=== PATIENT | female | born 1995 | race Hispanic/Latino ===

== ENCOUNTER 2017-09-19 01:18 | Inpatient (IN) | payer MEDICAID, SELFPAY ==
[2017-09-19 01:52] LABS: Bilirubin Small (Negative); Blood, Urine Negative (Negative); Clarity CLOUDY (Clear); Glucose, Urine (Dipstick) Negative (Negative); Leukocyte Trace (Negative); Nitrite Negative (Negative); Pregnancy Test - Urine (BHCG) Negative (Negative); Pregu Control Background? CLEAR/WHITE (CLR/WHITE); Pregu Control Bar Appear? YES (CONTROL BAR); Protein, Urine (Dipstick) 30 mg/dL (Neg-Trace); Specific Gravity 1.036 (1.002-1.036); Specific Gravity, Urine 1.036 (1.002-1.036)
[2017-09-19 01:53] LABS: Bacteria/HPF Rare-Few HPF (None Seen); Hyaline Casts/LPF 4-6 HYALINE CAST LPF (0-3 Hyaline); Pathc Cast-AUWi Flag 1.08 (0-2.49)
[2017-09-19 02:30] LABS: #Eosinphils 0.1 thou/uL (0.0-0.7); #Lymphocytes 1.4 thou/uL (1.20-3.40); #Monocytes 0.4 thou/uL (0.11-0.59); #Neutrophils 6.3 thou/uL (1.40-6.50); %Basophils 0.4 % (0.0-1.0); %Eosinophils 0.7 % (0.0-10.0); %Lymphocytes 17.4 % (28.0-48.0); %Monocytes 4.5 % (0.0-4.0); Hemoglobin 11.2 g/dL (12.0-16.0); Mean Corpuscular HGB CONC 32.9 g/dL (32.0-36.0); Mean Corpuscular Hemoglobin 25.9 pg (25.0-35.0); Mean Corpuscular Volume 78.6 fl (77.0-87.0); Mean Platelet Volume 9.6 fL (7.4-10.4); Platelet Count 263 thou/uL (130-400); RBC Distribution Width 14.6 % (11.5-14.5); Red Blood Cell (RBC) Count 4.32 mill/uL (4.00-5.20); White Blood Cell (WBC) Count 8.1 thou/uL (4.8-10.8)
[2017-09-19 02:40] LABS: ALT (SGPT) 283 U/L (8-55); AST (SGOT) 367 U/L (5-34); Albumin 4.2 g/dL (3.5-5.0); Alkaline Phosphatase 202 U/L (40-150); Anion Gap 15 mmol/L (10-20); BUN (Urea Nitrogen) 11 mg/dL (7.0-18.7); Bilirubin, Total 1.5 mg/dL (0.2-1.2); Calc. Creatinine Clearance 0 mL/min (70-130); Calcium 9.1 mg/dL (7.8-10.44); Carbon Dioxide 22 mmol/L (22-29); Chloride 105 mmol/L (98-107); Estimated GFR-MDRD Greater than 90; Globulin 3.4 g/dL (2.4-3.5); Glucose 134 mg/dL (70-105); Lipase 17 U/L (8-78); Potassium 3.6 mmol/L (3.5-5.1); Protein, Total 7.6 g/dL (6.0-8.3); Sodium 138 mmol/L (136-145)
[2017-09-19] MEDS ORDERED: Ondansetron HCl/PF 4 MG/2 ML Vial ONE ×2 (03:07→14:11)
[2017-09-19] MEDS ORDERED: Piperacillin/Tazobactam 3.375 GM in Sodium Chloride 0.9% 100 ML IVPB SCH ×2 (04:15→12:00)
[2017-09-19 05:22] VITALS: BMI 26.6
[2017-09-19] MEDS ORDERED: Sodium Chloride 0.9% 1,000 ML IV SCH (05:50)
[2017-09-19] MEDS ORDERED: Ondansetron HCl/PF 4 MG/2 ML Vial IVP PRN ×2 (05:50→08:02)
[2017-09-19] MEDS ORDERED: Ondansetron ODT 4 MG TAB SL PRN (05:50)
--- NOTE | 2017-09-19 08:25 | ULT ---
PRELIMINARY REPORT/[facility]/EMERGENCY AFTER HOURS PROCEDURE: EXAM: US Abdomen Limited, Right Upper Quadrant CLINICAL HISTORY: 22 years old, female; Pain and signs and symptoms; Nausea and vomiting and other: Constipation x 2 da ys; Abdominal pain; Other: Eoigastric radiating to back TECHNIQUE: Real-time ultrasound of the right upper quadrant with image documentation. COMPARISON: No relevant prior studies available. FINDINGS: Liver: Mildly enlarged, 19.4 cm. Gallbladder: Multiple small gallstones. Normal wall thickness. No pericholecystic fluid identified. Positive Napier's sign reported. Common bile duct: Dilated common bile duct measuring 0.9 cm. Pancreas: Visualized portion unremarkable. Right kidney: Normal. IMPRESSION: Small gallstones, normal gallbladder wall thickness. Dilated common bile duct. Thank you for allowing us to participate in the care of your patient. Dictated and Authenticated by: Grover Chamberlain MD 09/19/2017 3:29 AM Central Time ([place] & [place]) FINAL REPORT GALLBLADDER ULTRASOUND: Date: 09/19/17 FINDINGS/IMPRESSION: I agree with the preliminary report given by Dr. Grover Chamberlain of [facility]. POS: [facility]
[2017-09-19 08:39] LABS: #Eosinphils 0.1 thou/uL (0.0-0.7); #Lymphocytes 1.9 thou/uL (1.20-3.40); #Monocytes 0.4 thou/uL (0.11-0.59); #Neutrophils 3.2 thou/uL (1.40-6.50); %Basophils 0.7 % (0.0-1.0); %Eosinophils 1.1 % (0.0-10.0); %Monocytes 6.4 % (0.0-4.0); %Neutrophils 57.9 % (31.0-61.0); Hemoglobin 10.4 g/dL (12.0-16.0); Mean Corpuscular HGB CONC 32.3 g/dL (32.0-36.0); Mean Corpuscular Hemoglobin 25.4 pg (25.0-35.0); Mean Corpuscular Volume 78.7 fl (77.0-87.0); Mean Platelet Volume 9.3 fL (7.4-10.4); Platelet Count 248 thou/uL (130-400); RBC Distribution Width 14.5 % (11.5-14.5); Red Blood Cell (RBC) Count 4.08 mill/uL (4.00-5.20); White Blood Cell (WBC) Count 5.5 thou/uL (4.8-10.8)
[2017-09-19 09:03] LABS: ALT (SGPT) 319 U/L (8-55); AST (SGOT) 341 U/L (5-34); Albumin 3.6 g/dL (3.5-5.0); Alkaline Phosphatase 185 U/L (40-150); Anion Gap 10 mmol/L (10-20); BUN (Urea Nitrogen) 8 mg/dL (7.0-18.7); Bilirubin, Total 1.4 mg/dL (0.2-1.2); Calc. Creatinine Clearance 132 mL/min (70-130); Calcium 8.5 mg/dL (7.8-10.44); Carbon Dioxide 27 mmol/L (22-29); Chloride 107 mmol/L (98-107); Estimated GFR-MDRD Greater than 90; Globulin 2.9 g/dL (2.4-3.5); Glucose 111 mg/dL (70-105); Lipase 10 U/L (8-78); Potassium 3.6 mmol/L (3.5-5.1); Protein, Total 6.5 g/dL (6.0-8.3); Sodium 140 mmol/L (136-145)
[2017-09-19] MEDS ORDERED: Iothalamate Meglumine 60% 50 ML VIAL FS ONE (09:19)
[2017-09-19] MEDS ORDERED: Midazolam HCl 2 mg/2 ml Vial ONE (09:58)
[2017-09-19] MEDS ORDERED: Fentanyl 100 MCG/2 ML VIAL ONE (09:58)
--- NOTE | 2017-09-19 11:21 | CON ---
DATE OF CONSULTATION: 09/19/2017 REFERRING PHYSICIAN: Dr. Juanjose Velazquez REASON FOR CONSULTATION: Abdominal pain, nausea, abnormal liver function tests. HISTORY OF PRESENT ILLNESS: Tanisha Julien is a very pleasant 22-year-old female wit h abdominal pain, nausea and vomiting since yesterday. The patient came to the ER because of abdomin al pain over the epigastric area and nausea. She had abdominal sonogram. The sonogram shows gallsto kathy and also dilation CBD to 9 mm. Her liver function tests are elevated. The bilirubin was 1.5 on admission, today 1.4. The transaminases, AST 367, ALT 283, alkaline phosphatase 202. Chem-7 is norm al. Her lipase is normal. The patient tells me that she was having some abdominal pain when she was a couple months ago. The pain was transient and was cramping in nature and is in the same kind of pain what she is experiencing today. The pain usually goes away by itself. Two weeks ago nash gilliland had abdominal pain with nausea and the pain lasted almost one week. Subsequently, the pain resolve d. She was doing well until last night when the pain came back again. The patient has no family his tory of gallstones. There is no other relevant history. ALLERGIES: None. SOCIAL HISTORY: The patient does not smoke or drink alcohol. MEDICAL ILLNESSES: None. SURGERIES: None. MENSTRUAL HISTORY: Regular cycles, LMP about 10 days ago. Normally bleeds for 3 days. She had a baby 2 months ago delivered by Dr. Sree Tavarez. FAMILY HISTORY: Unremarkable. REVIEW OF SYSTEMS: A 10-point system review was totally unremarkable. PHYSICAL EXAMINATION: GENERAL: The patient appears comfortable. She is awake, alert and communicative. VITAL SIGNS: Temperature 97.9 degrees Fahrenheit, pulse is 74, blood pressure is 112/74. HEENT: Conjunctivae clear. NECK: Supple. No adenitis or thyromegaly noted. CARDIOVASCULAR: First and second heart sounds normal. LUNGS: Clear to auscultation. ABDOMEN: Soft to palpate. Abdomen is mildly tender over the epigastric area. There is no rebound o r guarding. No organomegaly or masses. Bowel sounds are normal. EXTREMITIES: Reveal no edema. LABORATORY: Today sodium 140, potassium 3.6, chloride 107, bicarbonate 27, BUN is 8, creatinine 0.71 , glucose 111, calcium 8.5, bilirubin 1.4, AST 341. ALT 319, alkaline phosphatase 185, lipase normal at 10. Her CBC is normal without any leukocytosis. WBC 5900, hemoglobin 10.4, hematocrit 32.1, MCV 78.7, platelet count 248,000, polymorphs 57, lymphocytes 34, monocytes 6. The abdominal sonogram shows dilated CBD and also gallstones. CLINICAL IMPRESSION: Choledocholithiasis, gallstones. Plan endoscopic retrograde cholangiopancreato graphy with papillotomy. I did talk to Ms. Julien and explained about the procedure. She consents for ERCP followed by a laparoscopic cholecystectomy by Dr. Velazquez. The procedure and risks like pa ncreatitis, infection, bleeding, perforation explained to the patient. The patient fully understood the procedure and is agreeable. I will plan for ERCP later on today.
--- NOTE | 2017-09-19 12:28 | RAD ---
ERCP: INDICATION: Intraoperative imaging during ERCP procedure. Four fluoroscopic images are presented from ERCP exam. FINDINGS: The common duct is opacified. On one of the images, there is a suggestion of filling defects in the lower common duct, although this is not confirmed on the other images. Cystic duct is identified. T he intrahepatic radicals appear unremarkable. IMPRESSION: There is evidence of filling defect in the lower common duct seen on one of the images. POS: [facility]
[2017-09-19] MEDS ORDERED: Propofol 200 MG/20 ML VIAL ONE (14:11)
[2017-09-19] MEDS ORDERED: Glycopyrrolate 0.2 MG/ML 5 ML SYRINGE ONE (14:11)
[2017-09-19] MEDS ORDERED: Dexamethasone 20 MG/5 ML VIAL ONE (14:11)
[2017-09-19] MEDS ORDERED: Lidocaine 1% PF 5 ML VIAL ONE (14:11)
[2017-09-19] MEDS: Piperacillin/Tazobactam 3.375 GM in Sodium Chloride 0.9% 100 ML IVPB SCH ×2 (16:12→21:44)
--- NOTE | 2017-09-19 16:44 | OP ---
DATE OF PROCEDURE: 09/19/2017 OPERATIVE PROCEDURES: 1. Endoscopic retrograde cholangiopancreatography with papillotomy. 2. Balloon sweep of the bile duct. PREOPERATIVE DIAGNOSES: Abdominal pain, abnormal LFTs, possible common bile duct stone. POSTOPERATIVE DIAGNOSES: 1. Normal caliber bile duct. 2. Small filling defect in distal bile duct, status post sphincterotomy. PROCEDURE IN DETAIL: The patient was intubated and was given sedation by Anesthesia Department. The patient was transferred from the stretcher to the fluoroscopy table. The patient was placed on her stomach. A bite block was placed. A [employer] video duodenoscope under direct vision was passed down t he oropharynx past the GE junction and advanced into the descending duodenum. The papilla was again identified. The papilla was cannulated with a guidewire into the bile duct selectively. Upon inject ion of contrast, there was a questionable filling defects in the distal bile duct. The bile ducts we re nondilated. A papillotomy was made at the 12 o'clock position. A 1.25-1.5 cm sized cut was made. After the papillotomy, the papillotome was exchanged to a biliary balloon size 9-12 mm. The balloo n was advanced into the bile duct and the duct was swept x4. In initial sweeping, I could see a smal l stone coming out. Subsequently, the balloon was swept three more times with balloon was easily bro ught out from 9-12 mm. Occlusion cholangiogram showed no filling defects. Also, the bile duct empti ed very promptly. The stomach was decompressed and the scope removed. RECOMMENDATIONS: 1. Repeat LFTs tomorrow. 2. Clear liquid diet today and possibly a laparoscopic cholecystectomy by Dr. Velazquez tomorrow.
[2017-09-19] MEDS: D5 1/2 NS w/20 mEq KCL 1,000 ML IV SCH ×2 (17:32→17:37)
--- NOTE | 2017-09-19 19:18 | HP ---
CHIEF COMPLAINT: Abdominal pain. HISTORY OF PRESENT ILLNESS: Ms. Julien is a 22-year-old woman with intermittent postprandial abdominal pain for the past 3 months or so. This became much worse the day before her admission and was not relenting so she came to the emergency room. She was found to have gallstones but also was noted to have elevated bilirubin, AST, ALT, and a dilated common bile duct to 9 mm. She was placed on IV antibiotics and admitted to the hospital. This morning Gastroenterology saw her and performed an ERCP with sphincterotomy and stone extraction. She is feeling somewhat better since her ERCP, but still has pain in her epigastric area. She denies any fevers or chills. She had nausea, but no vomiting, no changes in her bowel habits. No jaundice or icterus. She is otherwise healthy. PAST MEDICAL HISTORY: None. PAST SURGICAL HISTORY: None except for ERCP today. FAMILY HISTORY: None. MEDICATIONS: No medications. ALLERGIES: No allergies. REVIEW OF SYSTEMS: Ten-system review of systems is negative except for HPI. LABORATORY DATA: White count was normal. Hematocrit 32, platelets 248. Bilirubin was 1.5, AST and ALT in the 300s, alkaline phosphatase elevated at 200. Urine test negative. IMAGING: As per HPI. She was also noted to have a adnexal mass which was felt to be an involuting cyst of her ovary. PHYSICAL EXAMINATION: VITAL SIGNS: The patient has been afebrile since her admission. Heart rate is in the 70s, respirations 14, 98% saturated on room air, blood pressure 112/74. GENERAL: Reveals a healthy appearing young woman, in no acute distress. She is not flushed or toxic in appearance. She is not jaundiced or icteric. HEENT: Normal. NECK: Supple without lymphadenopathy or thyroid nodules. HEART: Regular in its rate and rhythm without murmurs, rubs or gallops. LUNGS: Clear to auscultation bilaterally. ABDOMEN: Soft and nondistended. She does not have any palpable masses or hernias. She is tender to palpation in the epigastrium greater than right upper quadrant, greater than left upper quadrant. She does not exhibit rigidity , rebound or guarding. Bowel sounds are present. EXTREMITIES: Warm and well perfused. NEUROLOGIC: No focal deficits. PSYCHIATRIC: Alert, oriented, and appropriate. ASSESSMENT: Cholelithiasis, choledocholithiasis, status post ERCP, sphincterotomy, and stone extraction. I have recommended laparoscopic cholecystectomy to prevent future episodes. The patient is in agreement with this plan. She is scheduled for a laparoscopic cholecystectomy tomorrow. I am going to be traveling out of town, but Dr. Munroe is available to perform her surgery. The procedure and its inherent risks were discussed in detail with the patient. These include, but are not limited to bleeding, infection, risks of anesthesia, damage to nearby structures including bowel, liver and bile duct, need for other procedures, and need for open surgery. She understands and accepts these risks and wishes to proceed. She will be maintained on IV antibiotics perioperatively. She has been made n.p.o. after midnight. All of her questions were answered. ROGERIO
[2017-09-20] MEDS: D5 1/2 NS w/20 mEq KCL 1,000 ML IV SCH ×3 (03:12→17:26)
[2017-09-20] MEDS: Piperacillin/Tazobactam 3.375 GM in Sodium Chloride 0.9% 100 ML IVPB SCH ×4 (03:34→21:41)
[2017-09-20 04:46] LABS: #Lymphocytes 1.9 thou/uL (1.20-3.40); #Monocytes 0.3 thou/uL (0.11-0.59); #Neutrophils 5.3 thou/uL (1.40-6.50); %Basophils 0.4 % (0.0-1.0); %Eosinophils 0.1 % (0.0-10.0); %Lymphocytes 24.5 % (28.0-48.0); %Monocytes 4.5 % (0.0-4.0); %Neutrophils 70.5 % (31.0-61.0); Hemoglobin 9.7 g/dL (12.0-16.0); Mean Corpuscular HGB CONC 32.4 g/dL (32.0-36.0); Mean Corpuscular Hemoglobin 25.6 pg (25.0-35.0); Mean Platelet Volume 9.4 fL (7.4-10.4); Platelet Count 237 thou/uL (130-400); RBC Distribution Width 14.5 % (11.5-14.5); Red Blood Cell (RBC) Count 3.77 mill/uL (4.00-5.20); White Blood Cell (WBC) Count 7.5 thou/uL (4.8-10.8)
[2017-09-20 04:51] LABS: ALT (SGPT) 217 U/L (8-55); AST (SGOT) 110 U/L (5-34); Albumin 3.4 g/dL (3.5-5.0); Alkaline Phosphatase 155 U/L (40-150); Anion Gap 10 mmol/L (10-20); BUN (Urea Nitrogen) 6 mg/dL (7.0-18.7); Bilirubin, Direct 0.3 mg/dL (0.1-0.3); Bilirubin, Total 0.6 mg/dL (0.2-1.2); Calc. Creatinine Clearance 140 mL/min (70-130); Calcium 8.3 mg/dL (7.8-10.44); Carbon Dioxide 25 mmol/L (22-29); Chloride 108 mmol/L (98-107); Estimated GFR-MDRD Greater than 90; Globulin 2.7 g/dL (2.4-3.5); Glucose 150 mg/dL (70-105); Lipase 553 U/L (8-78); Potassium 3.6 mmol/L (3.5-5.1); Protein, Total 6.1 g/dL (6.0-8.3); Sodium 139 mmol/L (136-145)
[2017-09-20] MEDS ORDERED: FLU VACC QS2017-18 36 mo. & older 0.5 ML SYRINGE IM ONE (09:00)
[2017-09-20] MEDS ORDERED: Bupivacaine 0.25% HCL 30 ML VIAL ONE (09:55)
[2017-09-20] MEDS ORDERED: Lidocaine 1% w/Epinephrine 1:200K 30 ML VIAL ONE (09:55)
[2017-09-20] MEDS ORDERED: Fentanyl 100 MCG/2 ML VIAL ONE (10:03)
[2017-09-20] MEDS ORDERED: Promethazine HCl 25 MG SUPP ONE (10:03)
[2017-09-20] MEDS ORDERED: HYDROmorphone 0.5 MG/0.5 ML SYRINGE ONE (10:03)
[2017-09-20] MEDS ORDERED: Promethazine HCl 25 MG/ML VIAL ONE (10:04)
[2017-09-20] MEDS ORDERED: Promethazine HCl 25 MG/ML VIAL IM PRN ×2 (10:50→11:02)
[2017-09-20] MEDS ORDERED: HYDROmorphone 2 MG/ML VIAL SLOW IVP PRN (10:50)
[2017-09-20] MEDS ORDERED: Promethazine HCl 25 MG/ML VIAL SLOW IVP PRN (10:50)
[2017-09-20] MEDS ORDERED: Ondansetron HCl/PF 4 MG/2 ML Vial IVP PRN ×2 (10:50→11:02)
[2017-09-20] MEDS ORDERED: Dextrose 50% Abboject 50 ML SYRINGE SLOW IVP PRN (11:02)
[2017-09-20] MEDS ORDERED: Dextrose 5% in Water 1,000 ML IV PRN (11:02)
[2017-09-20] MEDS ORDERED: HYDROcodone/Acetaminophen 10/325 mg Tablet PO PRN (11:02)
[2017-09-20] MEDS ORDERED: Mag-Al 1200 mg/1200 mg/30 ML UDCUP PO PRN (11:02)
[2017-09-20] MEDS ORDERED: hydrALAZINE 20 MG/ML VIAL SLOW IVP PRN (11:02)
[2017-09-20] MEDS ORDERED: Calcium Carbonate 500 MG ChewTAB PO PRN (11:02)
[2017-09-20] MEDS: Ketorolac Tromethamine 30 MG/ML VIAL IVP SCH ×2 (12:46→17:32)
[2017-09-20] MEDS ORDERED: Dexamethasone 20 MG/5 ML VIAL ONE (14:33)
[2017-09-20] MEDS ORDERED: Ondansetron HCl/PF 4 MG/2 ML Vial ONE (14:33)
[2017-09-20] MEDS ORDERED: Ketorolac Tromethamine 30 MG/ML VIAL ONE (14:33)
[2017-09-20] MEDS ORDERED: Glycopyrrolate 0.2 MG/ML 5 ML SYRINGE ONE (14:33)
[2017-09-20] MEDS ORDERED: Propofol 200 MG/20 ML VIAL ONE (14:33)
[2017-09-20] MEDS ORDERED: Lidocaine 1% PF 5 ML VIAL ONE (14:33)
--- NOTE | 2017-09-20 14:59 | OP ---
PREOPERATIVE DIAGNOSIS: Symptomatic cholelithiasis. SURGEON: Salazar Munroe M.D. PROCEDURE PERFORMED: Laparoscopic cholecystectomy. INDICATIONS: A 22-year-old female who presented with severe right upper quadrant pain and elevated l iver function tests, underwent ERCP with stone extraction yesterday. FINDINGS: Contracted gallbladder. DESCRIPTION OF PROCEDURE: After informed consent was obtained, the patient was taken to the operatin g room and given general endotracheal anesthesia. She was placed in the supine position. Abdomen wa s prepped and draped in the usual fashion. Local anesthesia infiltrated subcutaneously and deep. A subumbilical incision was performed. Subcu divided sharply. Fascia grasped and two stay sutures of 0 Vicryl placed to either side of midline. Midline incised. Digital palpation revealed no local adh esions. A blunt 10-12 mm trocar inserted. Pneumoperitoneum was created to a pressure of 15 mmHg. A 0 degree laparoscope inserted. Under direct vision, three 5 mm ports placed subcostally. The gallb ladder grasped and advanced superiorly. The peritoneum was lysed distally to expose the duct, artery and critical view. The duct was triply ligated with Hemoclips and divided. The artery triply ligat ed with Hemoclips and divided. The gallbladder was removed from its fossa utilizing electrocautery, removed from the abdomen through the umbilical port. Hemostasis was assured. Trocars and retractors removed. The fascia closed with interrupted 0 Vicryl suture. The skin closed with interrupted 4-0 Rapide. Dermabond applied. The patient tolerated the procedure well and transferred to recovery in good condition. Sponge and needle count verified correct x2.
[2017-09-20] MEDS: HYDROcodone/Acetaminophen 10/325 mg Tablet PO PRN (21:41)
[2017-09-20] MEDS: Famotidine 20 MG TAB PO SCH (21:42)
[2017-09-20] MEDS: Famotidine 40 MG/4 ML VIAL IV SCH (23:41)
[2017-09-21] MEDS: Ketorolac Tromethamine 30 MG/ML VIAL IVP SCH ×3 (00:30→11:43)
[2017-09-21] MEDS: D5 1/2 NS w/20 mEq KCL 1,000 ML IV SCH (03:28)
[2017-09-21] MEDS: HYDROcodone/Acetaminophen 10/325 mg Tablet PO PRN (03:37)
[2017-09-21] MEDS: Piperacillin/Tazobactam 3.375 GM in Sodium Chloride 0.9% 100 ML IVPB SCH ×2 (03:38→09:22)
[2017-09-21 04:49] LABS: #Eosinphils 0.1 thou/uL (0.0-0.7); #Lymphocytes 2.1 thou/uL (1.20-3.40); #Monocytes 0.4 thou/uL (0.11-0.59); %Eosinophils 1.5 % (0.0-10.0); %Lymphocytes 27.2 % (28.0-48.0); %Monocytes 5.4 % (0.0-4.0); %Neutrophils 65.9 % (31.0-61.0); Hemoglobin 9.6 g/dL (12.0-16.0); Mean Corpuscular HGB CONC 32.8 g/dL (32.0-36.0); Mean Corpuscular Hemoglobin 26.2 pg (25.0-35.0); Mean Corpuscular Volume 79.9 fl (77.0-87.0); Mean Platelet Volume 9.5 fL (7.4-10.4); Platelet Count 224 thou/uL (130-400); RBC Distribution Width 14.7 % (11.5-14.5); Red Blood Cell (RBC) Count 3.68 mill/uL (4.00-5.20); White Blood Cell (WBC) Count 7.6 thou/uL (4.8-10.8)
[2017-09-21 05:01] LABS: ALT (SGPT) 156 U/L (8-55); AST (SGOT) 53 U/L (5-34); Albumin 3.2 g/dL (3.5-5.0); Alkaline Phosphatase 135 U/L (40-150); Anion Gap 11 mmol/L (10-20); BUN (Urea Nitrogen) 7 mg/dL (7.0-18.7); Bilirubin, Total 0.4 mg/dL (0.2-1.2); Calc. Creatinine Clearance 125 mL/min (70-130); Calcium 8.2 mg/dL (7.8-10.44); Carbon Dioxide 25 mmol/L (22-29); Chloride 108 mmol/L (98-107); Estimated GFR-MDRD Greater than 90; Globulin 2.7 g/dL (2.4-3.5); Glucose 139 mg/dL (70-105); Potassium 3.7 mmol/L (3.5-5.1); Protein, Total 5.9 g/dL (6.0-8.3); Sodium 140 mmol/L (136-145)
[2017-09-21] MEDS ORDERED: Enoxaparin Sodium 40 MG/0.4 ML SYRINGE SC SCH (09:00)
[2017-09-21] MEDS: Famotidine 20 MG TAB PO SCH (09:19)
[2017-09-21] MEDS: Famotidine 40 MG/4 ML VIAL IV SCH (09:19)
[2017-09-21 11:31] VITALS: BP 119/80; TEMP 98.1
--- NOTE | 2017-09-21 22:52 | DIS ---
DISCHARGE DIAGNOSIS: Acute cholecystitis with choledocholithiasis. PROCEDURES DURING ADMISSION: ERCP with stone extraction, laparoscopic cholecystectomy. HOSPITAL COURSE: The patient was admitted. She had elevated liver function test. GI was consulted. They performed an ERCP with stone extraction. The following day, she underwent a laparoscopic chol ecystectomy. She is doing well. She is tolerating diet. Pain is controlled on p.o. medications. S he is discharged home on hydrocodone and Zofran. She will follow up with me in 2 weeks.
== END 2017-09-21 15:09 | disposition home or self-care (01) | DRG 419 ==
LOC: ERS 01:18 → SJJU 05:07
PROVIDERS: ADMIT Surgery; ATTEND Surgery
PROC: 0FC98ZZ Extirpation of Matter from Common Bile Duct, Via Natural or Artificial Opening Endoscopic (ICD-10-PCS; 2017-09-19)
PROC: BF100ZZ Fluoroscopy of Bile Ducts using High Osmolar Contrast (ICD-10-PCS; 2017-09-19)
PROC: 0FT44ZZ Resection of Gallbladder, Percutaneous Endoscopic Approach (ICD-10-PCS; principal; 2017-09-20)
DX: K80.62 Calculus of gallbladder and bile duct with acute cholecystitis without obstruction (principal)
CPT/HCPCS: 36415; 74330; 76705; 80053; 80076; 81003; 81015; 81025; 83690; 85025; 87086; 88304; 96365; 96375; J1100; J1170; J1650; J1885; J2001; J2250; J2270; J2405; J2543; J2550; J2704; J3010; J7050; Q9961; S0020

== ENCOUNTER 2018-07-07 22:01 | Emergency (ER) | payer OTHER, SELFPAY ==
[2018-07-07 23:05] LABS: #Lymphocytes 2.7 thou/uL (1.20-3.40); #Monocytes 0.5 thou/uL (0.11-0.59); %Basophils 0.4 % (0.0-1.0); %Eosinophils 0.4 % (0.0-10.0); %Lymphocytes 25.9 % (21.0-51.0); %Monocytes 4.9 % (0.0-10.0); %Neutrophils 68.5 % (42.0-75.0); Hemoglobin 13.2 g/dL (12.0-16.0); Mean Corpuscular Hemoglobin 27.3 pg (27.0-31.0); Mean Corpuscular Volume 80.3 fL (78.0-98.0); Mean Platelet Volume 8.5 fL (7.4-10.4); Platelet Count 274 thou/uL (130-400); RBC Distribution Width 12.9 % (11.5-14.5); Red Blood Cell (RBC) Count 4.83 mill/uL (4.20-5.40); White Blood Cell (WBC) Count 10.2 thou/uL (4.8-10.8)
[2018-07-07 23:10] LABS: Bilirubin Negative (Negative); Blood, Urine Negative (Negative); Clarity CLEAR (Clear); Glucose, Urine (Dipstick) Negative (Negative); Leukocyte Negative (Negative); Nitrite Negative (Negative); Protein, Urine (Dipstick) Negative (Neg-Trace); Specific Gravity, Urine 1.014 (1.002-1.036); Urobilinogen 0.2 mg/dL (0.2-1.0); pH, Urine 6.5 (5.0-9.0)
[2018-07-07 23:25] LABS: ALT (SGPT) 22 U/L (8-55); AST (SGOT) 22 U/L (5-34); Albumin 4.1 g/dL (3.5-5.0); Alkaline Phosphatase 103 U/L (40-150); Anion Gap 14 mmol/L (10-20); BUN (Urea Nitrogen) 6 mg/dL (7.0-18.7); Bilirubin, Total 0.4 mg/dL (0.2-1.2); Calc. Creatinine Clearance 0 mL/min (70-130); Calcium 9.4 mg/dL (7.8-10.44); Carbon Dioxide 21 mmol/L (22-29); Chloride 105 mmol/L (98-107); Estimated GFR-MDRD Greater than 90; Globulin 3.9 g/dL (2.4-3.5); Glucose 117 mg/dL (70-105); Potassium 3.8 mmol/L (3.5-5.1); Sodium 136 mmol/L (136-145)
[2018-07-07 23:33] LABS: BHCG - Serum POSITIVE (NEGATIVE); Pregs Control Background? CLEAR/WHITE (CLR/WHITE); Pregs Control Bar Appear? YES (CONTROL BAR)
--- NOTE | 2018-07-08 08:18 | ULT ---
PRELIMINARY REPORT/[facility]/EMERGENTY AFTER-HOURS PROCEDURE US , Limited EXAM DATE/TIME: 07/07/2018 11:59 PM CLINICAL HISTORY: 23 years old, female; Pain; complicated by abdominal or pelvic pain; Lower; First trimester ; Gestational age or lmp: 8w3d; ; Patient HX: Lower abd pain, spotting this morning, no spott ing now TECHNIQUE: Real-time ultrasound of the maternal uterus with image documentation. Exam focused on the cl inical indication. COMPARISON: No relevant prior studies available. FINDINGS: There is a live single intrauterine with an estimated heart rate of 171 beats per min [place]. GESTATIONAL SAC - 3 cm - C/W 8 weeks 1 day CRL - 20 mm - C/W 8 weeks 4 days YOLK SAC - 6.4 mm There are no uterine abnormalities or significant free intraperitoneal fluid. The adenxa are unremark able. IMPRESSION: Single live intrauterine with an estimated gestational age of 8 weeks 3 days by ultrasound criteria. Expected due date February 13 2019 by ultrasound criteria Thank you for allowing us to participate in the care of your patient. Dictated and Authenticated by: Vinyn Desir MD 07/08/2018 12:35 AM Central Time ([place] & [place]) FINAL REPORT EMERGENT AFTER HOURS TRANSABDOMINAL PELVIC ULTRASOUND: IMPRESSION: Agree with the preliminary interpretation given by [facility]. POS: [facility]
[2018-07-10 01:20] LABS: Chlamydia by PCR Not Detected (NotDetected); GC by PCR Not Detected (NotDetected)
== END 2018-07-08 01:11 | disposition home or self-care (01) ==
LOC: ERS 22:01
DX: O99.89 Other specified diseases and conditions complicating pregnancy, childbirth and the puerperium (principal); R10.30 Lower abdominal pain, unspecified; O99.011 Anemia complicating pregnancy, first trimester; Z3A.09 9 weeks gestation of pregnancy; Z79.899 Other long term (current) drug therapy
CPT/HCPCS: 36415; 76856; 80053; 81003; 83690; 84702; 84703; 85025; 86850; 86900; 86901; 87480; 87491; 87510; 87591; 87660; 93976

== ENCOUNTER 2018-10-07 09:53 | Outpatient (CLI) | payer MEDICAID ==
--- NOTE | 2018-10-07 11:51 | ULT ---
OB ULTRASOUND: 10/07/2018 HISTORY: Positive . Evaluate for size and dates. FINDINGS: There is a single intrauterine gestation, in transverse lie, with the head to the maternal right. Ca rdiac Doppler demonstrates heart tones, with a heart rate of 152 beats per minute. The p lacenta is located anteriorly without evidence of placenta previa. Cervical length on transabdominal imaging measures 3.8 cm. Amniotic fluid index is within normal limits, measuring 12.3 cm. MEASUREMENTS: BIPARIETAL DIAMETER: 5.32 cm (22 weeks 1 day). HEAD CIRCUMFERENCE: 20.15 cm (22 weeks 2 days). ABDOMINAL CIRCUMFERENCE: 17.51 cm (22 weeks 3 days). FEMUR LENGTH: 3.74 cm (21 weeks 6 days). The estimated gestational age by ultrasound is 22 weeks 2 days with an CORNELIO of 02/08/2019. This does correlate with a gestational age by the last menstrual period of 22 weeks 3 days. The estimated weight by ultrasound is 485 g (1 lb 1 oz). This represents the 33rd percentile f or weight. The cerebellum, as well as nose and lips, is not well seen, related to positioning and difficul ty in visualizing these structures. The visualized portions of the spine, four-chambered heart , bilateral kidneys, stomach, urinary bladder, and cord insertion are well visualized and demonstrate a normal sonographic appearance. There is suggestion of a three-vessel cord with flow on either kendra e of the urinary bladder noted on color-flow evaluation. No definite anomalies are seen on this exam. IMPRESSION: 1. Single intrauterine gestation, in transverse lie, with the head to the maternal right. hea rt tones are documented. 2. The estimated gestational age by ultrasound is 22 weeks 2 days with an estimated date of delivery of 02/08/2019. 3. Estimated weight by ultrasound is 485 g (1 lb 1 oz). 4. Amniotic fluid index is 12.3 cm. POS: [facility]
== END 2018-10-07 09:54 | disposition home or self-care (01) ==
LOC: SCSULT 09:53
PROVIDERS: ATTEND Family Medicine
DX: Z34.82 Encounter for supervision of other normal pregnancy, second trimester (principal); Z3A.22 22 weeks gestation of pregnancy
CPT/HCPCS: 76805

== ENCOUNTER 2018-12-21 06:41 | Outpatient (CLI) | payer MEDICAID ==
--- NOTE | 2018-12-21 07:38 | ULT ---
US OB Complete STANDARD History: [Anatomy scan] Comparison: Pelvic ultrasound October 07, 2018 Findings: Real-time grayscale, color, and spectral analysis of the gravid uterus was performed transa bdominal approach. The position is breech. The cervix measures 3.9 cm in length. The placenta is anterior. heart rate documented at 1 24 bpm. Amniotic fluid index measures 12.2 cm. Single viable intrauterine with average ultrasound age 32 week 1 day with estimated date of delivery February 14, 2019. Nose/lips is normal. Biometry: Biparietal diameter: 8.1 cm, 32 week 4 day Head circumference: 29.04 cm, 32 weeks 0 day Abdominal circumference: 28.81 cm, 32 weeks 6 day Femur length: 5.98 cm, 31 week 1 day Impression: Normal single viable intrauterine .
== END 2018-12-21 06:42 | disposition home or self-care (01) ==
LOC: BICULT 06:41
PROVIDERS: ATTEND Family Medicine
DX: Z34.83 Encounter for supervision of other normal pregnancy, third trimester (principal); Z3A.32 32 weeks gestation of pregnancy
CPT/HCPCS: 76805

== ENCOUNTER 2019-02-01 20:24 | Inpatient (IN) | payer MEDICAID, SELFPAY ==
[~2019-02-01 20:24] MED LIST: Bupivacaine PF 0.5% 30 ML VIAL ONE; Bupivacaine/Epinephrine 0.25% 30 ML VIAL ONE
[2019-02-01] MEDS ORDERED: Methylergonovine 0.2 MG/ML VIAL IM PRN (20:42)
[2019-02-01] MEDS ORDERED: hydrALAZINE 20 MG/ML VIAL SLOW IVP PRN (20:42)
[2019-02-01] MEDS ORDERED: Promethazine HCl 25 MG/ML VIAL IM PRN (20:42)
[2019-02-01] MEDS ORDERED: NS / Oxytocin 40 units/1000ml 1,000 ML IV PRN (20:42)
[2019-02-01] MEDS ORDERED: Lidocaine 1% (PF) 30 ML VIAL SC PRN (20:42)
[2019-02-01] MEDS ORDERED: Butorphanol Tartrate 1 MG/ML VIAL SLOW IVP PRN (20:42)
[2019-02-01] MEDS ORDERED: Ondansetron PF 4 MG/2 ML Vial IVP PRN (20:42)
[2019-02-01] MEDS ORDERED: Diphenoxylate HCl/Atropine Tablet PO PRN (20:42)
[2019-02-01] MEDS ORDERED: Carboprost 250 MCG/ML AMP IM PRN (20:42)
[2019-02-01] MEDS ORDERED: HYDROcodone/Acetaminophen 5/325 mg Tablet PO PRN (20:42)
[2019-02-01] MEDS ORDERED: Ibuprofen 800 MG TAB PO PRN (20:42)
[2019-02-01] MEDS ORDERED: Misoprostol 200 MCG TAB PR PRN (20:42)
[2019-02-01] MEDS ORDERED: NS w/ Oxytocin 10 units 500 ML IV SCH ×2 (21:00)
[2019-02-01 21:08] VITALS: BMI 41.8
[2019-02-01] MEDS: Misoprostol 100 MCG TAB PO SCH (21:47)
[2019-02-01] MEDS: Lactated Ringer's 1,000 ML IV SCH (21:48)
[2019-02-01 21:50] LABS: Hemoglobin 9.8 g/dL (12.0-16.0); Mean Corpuscular HGB CONC 31.8 g/dL (32.0-36.0); Mean Corpuscular Hemoglobin 23.4 pg (27.0-31.0); Mean Corpuscular Volume 73.6 fL (78.0-98.0); Mean Platelet Volume 9.3 fL (7.4-10.4); Platelet Count 259 thou/uL (130-400); RBC Distribution Width 14.8 % (11.5-14.5); Red Blood Cell (RBC) Count 4.17 mill/uL (4.20-5.40); White Blood Cell (WBC) Count 7.5 thou/uL (4.8-10.8)
[2019-02-01 22:24] LABS: Syphilis Antibody Nonreactive (Nonreactive); Syphilis Antibody Index 0.04 S/CO (<1.00 Non-Reactive)
[2019-02-02 01:49] LABS: HBSAg Index 0.28 S/CO (0-0.99); Hep B Surf Ag Non-Reactive S/CO (NonReactive)
[2019-02-02] MEDS: Misoprostol 100 MCG TAB PO SCH ×2 (04:19→05:13)
[2019-02-02] MEDS: Lactated Ringer's 1,000 ML IV SCH ×2 (05:12→09:49)
[2019-02-02] MEDS ORDERED: Fentanyl 4 mcg/Bup 0.1% Cadd 100 ML ONE (09:00)
[2019-02-02] MEDS ORDERED: ePHEDrine/0.9% NaCl/PF SYRINGE 50 mg/10 ml SLOW IVP PRN (10:20)
[2019-02-02] MEDS ORDERED: Acetaminophen 325 MG TAB PO PRN (10:20)
[2019-02-02] MEDS ORDERED: Promethazine HCl 25 MG/ML VIAL IM PRN ×2 (10:20→16:56)
[2019-02-02] MEDS ORDERED: Lactated Ringer's 500 ML IV PRN (10:20)
[2019-02-02] MEDS ORDERED: Ondansetron PF 4 MG/2 ML Vial IVP PRN ×2 (10:20→16:56)
[2019-02-02] MEDS ORDERED: Naloxone HCl 0.4 mg/ml Vial IVP PRN ×2 (10:20)
[2019-02-02] MEDS ORDERED: diphenhydrAMINE 50 MG/ML VIAL IVP PRN (10:20)
[2019-02-02] MEDS ORDERED: Communication Order-Pharmacy FS SCH (10:30)
[2019-02-02] MEDS ORDERED: Fentanyl 4 mcg/Bupivacaine 0.1% Cassette 100 ML EPIDURAL SCH (10:30)
[2019-02-02] MEDS ORDERED: NS / Oxytocin 40 units/1000ml 1,000 ML IV SCH (16:56)
[2019-02-02] MEDS ORDERED: Milk Of Magnesia 30 ML UDCUP PO PRN (16:56)
[2019-02-02] MEDS ORDERED: HYDROcodone/Acetaminophen 5/325 mg Tablet PO PRN ×2 (16:56)
[2019-02-02] MEDS ORDERED: hydrALAZINE 20 MG/ML VIAL SLOW IVP PRN (16:56)
[2019-02-02] MEDS ORDERED: Lanolin Ointment 7 GM TUBE TOP PRN (16:56)
[2019-02-02] MEDS ORDERED: Bisacodyl 10 MG SUPP PR PRN (16:56)
[2019-02-02] MEDS ORDERED: diphenhydrAMINE 25 MG CAP PO PRN (16:56)
[2019-02-02] MEDS: Ferrous Sulfate 325 MG TAB PO SCH (18:42)
[2019-02-02] MEDS: Ibuprofen 800 MG TAB PO SCH (21:41)
[2019-02-02] MEDS: Docusate Calcium (SURFAK) 240 MG CAP PO SCH (21:41)
[2019-02-03] MEDS: Ibuprofen 800 MG TAB PO SCH ×2 (05:23→14:06)
[2019-02-03 06:41] LABS: Hemoglobin 8.9 g/dL (12.0-16.0); Mean Corpuscular HGB CONC 32.8 g/dL (32.0-36.0); Mean Corpuscular Hemoglobin 24.2 pg (27.0-31.0); Mean Corpuscular Volume 73.7 fL (78.0-98.0); Mean Platelet Volume 9.5 fL (7.4-10.4); Platelet Count 205 thou/uL (130-400); RBC Distribution Width 14.8 % (11.5-14.5); Red Blood Cell (RBC) Count 3.68 mill/uL (4.20-5.40); White Blood Cell (WBC) Count 9.2 thou/uL (4.8-10.8)
[2019-02-03] MEDS ORDERED: Prenatal Vitamin 1 TAB PO SCH (09:00)
[2019-02-03] MEDS: Ferrous Sulfate 325 MG TAB PO SCH (09:57)
[2019-02-03] MEDS: Docusate Calcium (SURFAK) 240 MG CAP PO SCH (09:58)
[2019-02-03 11:32] VITALS: BP 125/70; TEMP 98.3
== END 2019-02-03 18:30 | disposition home or self-care (01) | DRG 807 ==
LOC: L&D 20:24 → 3SW 02-02 18:19
PROVIDERS: ADMIT Family Medicine; ATTEND Family Medicine
PROC: 10E0XZZ Delivery of Products of Conception, External Approach (ICD-10-PCS; principal; 2019-02-01)
PROC: 10907ZC Drainage of Amniotic Fluid, Therapeutic from Products of Conception, Via Natural or Artificial Opening (ICD-10-PCS; 2019-02-01)
PROC: 3E033VJ Introduction of Other Hormone into Peripheral Vein, Percutaneous Approach (ICD-10-PCS; 2019-02-01)
DX: O24.420 Gestational diabetes mellitus in childbirth, diet controlled (principal); Z37.0 Single live birth; Z3A.39 39 weeks gestation of pregnancy; O99.214 Obesity complicating childbirth
CPT/HCPCS: 36415; 36416; 51702; 85027; 86780; 86850; 86900; 86901; 87340; J0595; J2590; S0020

== ENCOUNTER 2019-09-02 15:43 | Outpatient (CLI) | payer OTHER ==
--- NOTE | 2019-09-02 16:30 | ULT ---
Complete obstetrical ultrasound INDICATION: survey TECHNIQUE: Grayscale, M-mode Doppler and Doppler images were obtained of the abdomen and pelvis to ev aluate the patient's known . COMPARISON: None. FINDINGS: Number of gestations: Single. Presentation: Breech. Placental location: Anterior Previa: No evidence for previa. Cervical length: 4.91 cm ASPEN: 17.4 cm. heart rate: 147 bpm. Biparietal diameter: 5.72cm, 23 weeks and 4 days, Not calculated.. Head circumference: 21.06 cm, 23 weeks and 1 day, Not calculated. Abdominal circumference: 18.40 cm, 23 weeks and 2 days, Not calculated. Femoral length: 3.99cm, 23 weeks and 0 days, Not calculated. Estimated weight: 562 g +/- 82 g 1 lb. 4 oz. +/- 3 ounces, 8th percentile SURVEY: head: Normal appearing. Cerebellum: Normal appearing. Cisterna magna: Normal appearing. Lateral ventricles: Normal appearing. 4 chamber heart: Normal appearing.. Stomach: Normal appearing. Kidneys: Normal appearing. Cord insertion: Normal appearing. Bladder: Normal appearing. Spine: Normal appearing. Lips and nose: Normal appearing. Extremities: Normal appearing. Three-vessel CORD: Normal appearing. The average gestational age by ultrasound is 23 weeks and 2 dayswith estimated due date of December 27. The estimated dates by clinical data is 24 weeks and 1 daywith estimated due date of December 22, 2019. IMPRESSION: 1. Single live intrauterine gestation with size and dates as above. 2. Estimated weight is 8 percentile for gestational age. 3. survey appeared within normal limits.
== END 2019-09-02 15:44 | disposition home or self-care (01) ==
LOC: BICULT 15:43
PROVIDERS: ATTEND Family Medicine
DX: O09.892 Supervision of other high risk pregnancies, second trimester (principal); Z3A.24 24 weeks gestation of pregnancy
CPT/HCPCS: 76805

== ENCOUNTER 2019-12-15 16:53 | Outpatient (CLI) | payer OTHER ==
[2019-12-16 10:56] LABS: SARS-CoV-2 MS2 Positive; SARS-CoV-2 N Gene Negative; SARS-CoV-2 S Gene Negative; SARS-CoV-2 orf1ab Negative
== END 2019-12-15 16:54 | disposition home or self-care (01) ==
LOC: ERS 16:53
PROVIDERS: ATTEND Family Medicine
DX: Z11.59 Encounter for screening for other viral diseases (principal)
CPT/HCPCS: 87635; U0003

== ENCOUNTER 2019-12-16 13:20 | Inpatient (IN) | payer OTHER, SELFPAY ==
[~2019-12-16 13:20] MED LIST changes: -Bupivacaine PF 0.5% 30 ML VIAL ONE
[2019-12-16] MEDS ORDERED: hydrALAZINE 20 MG/ML VIAL SLOW IVP PRN (18:03)
[2019-12-16] MEDS ORDERED: Diphenoxylate HCl/Atropine Tablet PO PRN (18:03)
[2019-12-16] MEDS ORDERED: Ibuprofen 800 MG TAB PO PRN (18:03)
[2019-12-16] MEDS ORDERED: Methylergonovine 0.2 MG/ML VIAL IM PRN (18:03)
[2019-12-16] MEDS ORDERED: HYDROcodone/Acetaminophen 5/325 mg Tablet PO PRN (18:03)
[2019-12-16] MEDS ORDERED: Misoprostol 200 MCG TAB PR PRN (18:03)
[2019-12-16] MEDS ORDERED: Carboprost 250 MCG/ML AMP IM PRN (18:03)
[2019-12-16] MEDS ORDERED: Promethazine HCl 25 MG/ML VIAL IM PRN (18:03)
[2019-12-16] MEDS ORDERED: Lidocaine 1% (PF) 30 ML VIAL SC PRN (18:03)
[2019-12-16] MEDS ORDERED: Butorphanol Tartrate 1 MG/ML VIAL SLOW IVP PRN (18:03)
[2019-12-16] MEDS ORDERED: Ondansetron PF 4 MG/2 ML Vial IVP PRN (18:03)
[2019-12-16] MEDS ORDERED: NS / Oxytocin 40 units/1000ml 1,000 ML IV PRN (18:03)
[2019-12-16] MEDS ORDERED: Penicillin G Potassium 5 MILL.UNITS in Sodium Chloride 0.9% 100 ML IVPB SCH (18:15)
[2019-12-16] MEDS: Lactated Ringer's 1,000 ML IV SCH (19:50)
[2019-12-16 20:10] VITALS: BMI 43.0
[2019-12-16 20:21] LABS: Mean Corpuscular Hemoglobin 23.3 pg (27.0-31.0); Mean Platelet Volume 10.2 fL (7.4-10.4); Platelet Count 241 thou/uL (130-400); RBC Distribution Width 15.7 % (11.5-14.5); Red Blood Cell (RBC) Count 3.86 mill/uL (4.20-5.40); White Blood Cell (WBC) Count 6.9 thou/uL (4.8-10.8)
[2019-12-16 20:44] LABS: Syphilis Antibody Nonreactive (Nonreactive); Syphilis Antibody Index 0.04 S/CO (<1.00 Non-Reactive)
[2019-12-16] MEDS: Misoprostol 100 MCG TAB PO SCH (20:49)
[2019-12-16] MEDS: Penicillin G 2.5 MILL.units 2.5 MILL.UNITS in Premix Bag 1 BAG IVPB SCH (20:50)
[2019-12-16 21:06] LABS: HBSAg Index 0.19 S/CO (0-0.99); Hep B Surf Ag Non-Reactive S/CO (NonReactive)
[2019-12-17] MEDS: Penicillin G 2.5 MILL.units 2.5 MILL.UNITS in Premix Bag 1 BAG IVPB SCH ×3 (01:10→09:13)
[2019-12-17] MEDS: Misoprostol 100 MCG TAB PO SCH ×3 (01:10→18:16)
[2019-12-17] MEDS: Lactated Ringer's 1,000 ML IV SCH (05:15)
[2019-12-17] MEDS ORDERED: NS w/ Oxytocin 10 units 500 ML IVPB SCH (06:00)
[2019-12-17] MEDS ORDERED: Fentanyl 4 mcg/Bup 0.1% Cadd 100 ML ONE (09:02)
[2019-12-17] MEDS ORDERED: Naloxone HCl 0.4 mg/ml Vial IVP PRN ×2 (09:41)
[2019-12-17] MEDS ORDERED: diphenhydrAMINE 50 MG/ML VIAL IVP PRN (09:41)
[2019-12-17] MEDS ORDERED: Lactated Ringer's 500 ML IV PRN (09:41)
[2019-12-17] MEDS ORDERED: EPHEDRINE 25 MG/5 ML SYRINGE SLOW IVP PRN (09:41)
[2019-12-17] MEDS ORDERED: Promethazine HCl 25 MG/ML VIAL IM PRN (09:41)
[2019-12-17] MEDS ORDERED: Ondansetron PF 4 MG/2 ML Vial IVP PRN ×2 (09:41→16:02)
[2019-12-17] MEDS ORDERED: Acetaminophen 325 MG TAB PO PRN (09:41)
[2019-12-17] MEDS ORDERED: Communication Order-Pharmacy FS SCH (09:45)
[2019-12-17] MEDS ORDERED: Fentanyl 4 mcg/Bupivacaine 0.1% Cassette 100 ML EPIDURAL SCH (09:45)
[2019-12-17] MEDS ORDERED: NS / Oxytocin 40 units/1000ml 1,000 ML ONE (13:39)
[2019-12-17] MEDS ORDERED: Lidocaine 1% (PF) 30 ML VIAL ONE (13:39)
[2019-12-17] MEDS ORDERED: Adacel (T-DAP) 0.5 ML SYRINGE IM ONE (16:02)
[2019-12-17] MEDS ORDERED: Benzocaine-Menthol 82.5 ML CAN TOP PRN (16:02)
[2019-12-17] MEDS ORDERED: Milk Of Magnesia 30 ML UDCUP PO PRN (16:02)
[2019-12-17] MEDS ORDERED: diphenhydrAMINE 25 MG CAP PO PRN (16:02)
[2019-12-17] MEDS ORDERED: Lanolin Ointment 7 GM TUBE TOP PRN (16:02)
[2019-12-17] MEDS ORDERED: NS / Oxytocin 40 units/1000ml 1,000 ML IV SCH (16:02)
[2019-12-17] MEDS ORDERED: Bisacodyl 10 MG SUPP PR PRN (16:02)
[2019-12-17] MEDS ORDERED: HYDROcodone/Acetaminophen 5/325 mg Tablet PO PRN ×2 (16:02)
[2019-12-17] MEDS ORDERED: hydrALAZINE 20 MG/ML VIAL SLOW IVP PRN (16:02)
[2019-12-17] MEDS: Ferrous Sulfate 325 MG TAB PO SCH (18:25)
[2019-12-17] MEDS: Docusate Calcium (SURFAK) 240 MG CAP PO SCH (21:46)
[2019-12-17] MEDS: Ibuprofen 800 MG TAB PO SCH (21:46)
[2019-12-18 05:32] LABS: Hemoglobin 8.2 g/dL (12.0-16.0); Mean Corpuscular HGB CONC 30.9 g/dL (32.0-36.0); Mean Corpuscular Hemoglobin 22.9 pg (27.0-31.0); Mean Corpuscular Volume 74.1 fL (78.0-98.0); Mean Platelet Volume 10.2 fL (7.4-10.4); Platelet Count 204 thou/uL (130-400); RBC Distribution Width 15.9 % (11.5-14.5); Red Blood Cell (RBC) Count 3.56 mill/uL (4.20-5.40); White Blood Cell (WBC) Count 7.6 thou/uL (4.8-10.8)
[2019-12-18] MEDS: Ibuprofen 800 MG TAB PO SCH ×3 (06:42→14:03)
[2019-12-18] MEDS: Penicillin G 2.5 MILL.units 2.5 MILL.UNITS in Premix Bag 1 BAG IVPB SCH (07:28)
[2019-12-18] MEDS: Lactated Ringer's 1,000 ML IV SCH (07:28)
[2019-12-18] MEDS: Docusate Calcium (SURFAK) 240 MG CAP PO SCH (08:38)
[2019-12-18] MEDS: Ferrous Sulfate 325 MG TAB PO SCH (08:38)
[2019-12-18] MEDS ORDERED: Prenatal Vitamin 1 TAB PO SCH (09:00)
[2019-12-18 11:56] VITALS: BP 104/66; TEMP 98.5
== END 2019-12-18 17:50 | disposition home or self-care (01) | DRG 807 ==
LOC: L&D 19:27 → 3SW 12-17 18:18
PROVIDERS: ADMIT Family Medicine; ATTEND Family Medicine
PROC: 10E0XZZ Delivery of Products of Conception, External Approach (ICD-10-PCS; principal; 2019-12-17)
PROC: 10907ZC Drainage of Amniotic Fluid, Therapeutic from Products of Conception, Via Natural or Artificial Opening (ICD-10-PCS; 2019-12-17)
PROC: 0HQ9XZZ Repair Perineum Skin, External Approach (ICD-10-PCS; 2019-12-17)
DX: O70.0 First degree perineal laceration during delivery (principal); Z37.0 Single live birth; O99.824 Streptococcus B carrier state complicating childbirth; Z3A.39 39 weeks gestation of pregnancy
CPT/HCPCS: 36415; 85027; 86780; 86850; 86900; 86901; 87340; J2001; J2540; J2590; J3490

== ENCOUNTER 2020-08-29 21:01 | Day surgery (SDC) | payer MEDICAID, SELFPAY ==
[2020-08-29 22:05] LABS: Bacteria/HPF None Seen HPF (None Seen); Bilirubin Negative (Negative); Blood, Urine 3+ (Negative); Clarity Extra Turbid (Clear); Glucose, Urine (Dipstick) Normal (Negative); Ketone, Urine Trace mg/dL (Negative); Leukocyte 75 Leu/uL (Negative); Nitrite Negative (Negative); Protein, Urine (Dipstick) 50 mg/dL (Neg-Trace); RBC/HPF Greater than 50 HPF (0-3); Specific Gravity, Urine 1.033 (1.002-1.036); Squamous Epithelial 0-3 HPF (0-3); pH, Urine 6.5 (5.0-9.0)
[2020-08-29 22:06] LABS: %Neutrophils 53.9 % (42.0-75.0); Hemoglobin 11.4 g/dL (12.0-16.0); Mean Corpuscular HGB CONC 33.1 g/dL (32.0-36.0); Mean Corpuscular Volume 81.6 fL (78.0-98.0); Mean Platelet Volume 9.1 fL (7.4-10.4); Platelet Count 244 thou/uL (130-400); RBC Distribution Width 12.9 % (11.5-14.5); Red Blood Cell (RBC) Count 4.22 mill/uL (4.20-5.40); White Blood Cell (WBC) Count 8.4 thou/uL (4.8-10.8)
[2020-08-29 22:07] LABS: #Eosinphils 0.1 thou/uL (0.0-0.7); #Lymphocytes 3.3 thou/uL (1.20-3.40); #Monocytes 0.5 thou/uL (0.11-0.59); #Neutrophils 4.5 thou/uL (1.40-6.50); %Basophils 0.5 % (0.0-1.0); %Eosinophils 1.2 % (0.0-10.0); %Lymphocytes 38.9 % (21.0-51.0); %Monocytes 5.6 % (0.0-10.0)
[2020-08-29] MEDS ORDERED: Fentanyl 100 MCG/2 ML VIAL ONE (23:38)
[2020-08-29] MEDS ORDERED: Midazolam HCl 2 mg/2 ml Vial ONE (23:38)
[2020-08-29] MEDS ORDERED: Lidocaine 2% Jelly 5 ML TUBE ONE (23:38)
[2020-08-29] MEDS ORDERED: EPINEPHrine 1 MG/ML AMP ONE (23:49)
[2020-08-29] MEDS ORDERED: Bupivacaine PF 0.5% 30 ML VIAL ONE (23:49)
[2020-08-30] MEDS ORDERED: Promethazine HCl 25 MG/ML VIAL IM PRN (00:32)
[2020-08-30] MEDS ORDERED: Ondansetron HCl/PF 4 MG/2 ML Vial IVP PRN (00:32)
[2020-08-30] MEDS ORDERED: Promethazine HCl 25 MG/ML VIAL SLOW IVP PRN (00:32)
[2020-08-30 00:58] LABS: SARS-CoV-2 NAA Rapid Test Not Detected (NotDetected)
[2020-08-30] MEDS ORDERED: Ondansetron PF 4 MG/2 ML Vial ONE ×2 (02:00→10:10)
[2020-08-30] MEDS ORDERED: Fentanyl 100 MCG/2 ML VIAL ONE ×2 (02:14→02:25)
[2020-08-30] MEDS ORDERED: traMADol HCl 50 MG TAB PO PRN ×2 (02:30)
[2020-08-30 03:07] VITALS: BMI 43.9
[2020-08-30] MEDS ORDERED: Sodium Chloride 0.9% 10 ML ONE (03:28)
[2020-08-30] MEDS: Ketorolac Tromethamine 30 MG/ML VIAL IVP PRN ×2 (03:31→08:32)
[2020-08-30 06:25] VITALS: TEMP 98.2
--- NOTE | 2020-08-30 08:17 | ULT ---
PELVIC ULTRASOUND: HISTORY: Early with vaginal bleeding. FINDINGS: Real-time imaging of the pelvis was obtained both transabdominally as well as with an endovaginal pro be. This shows a normal-sized uterus measuring 4.5 x 5.9 x 8.7 cm. The endometrium appears to be in the 4 mm range. The right ovary is normal in appearance. Adjacent to the left ovary is a complex structure and there is some free fluid in this region. There is a tiny cystic area measuring in the 5-6 mm range , pote ntially a gestational sac. This would be in the 5 week range. No pole is identified. COLOR DOPPLER EVALUATION WITH SPECTRAL ANALYSIS: Normal flow is shown to the adnexa. IMPRESSION: Findings are suspicious for a left-sided ectopic. There is a structure adjacent to the left ovary wi th a possible gestational sac and there is more free fluid than expected. This was discussed with Bob Courtney who states the patient does have pain more on the left side and this would have to be sigrid ated with high suspicion of being a left-sided ectopic . CODE CR POS: OFF
--- NOTE | 2020-08-30 08:22 | PRG ---
DATE OF SERVICE: 08/30/2020 SUBJECTIVE: The patient is a 25-year-old female admitted last night for suspicion for ruptured ectopic . The surgery last night did not reveal the source of the , although the fimbrial end of the left tube was bleeding. There was no identifiable gestational sac or other evidence apart from this large quantity of blood. Otherwise, surgery was uncomplicated. This morning, plan is to repeat a quantitative HCG to see if she is acutely dropping or steadily maintaining. Last night around 9:30, the quantitative number was 1987. The patient is reporting some pain on her right side which is different as the patient's presenting symptoms were severe left lower quadrant pain. OBJECTIVE: VITAL SIGNS: Blood pressure this morning 100/53, temperature 98.2, respiratory rate of 16, saturating 99% on room air, pulse is about 98 currently. GENERAL: She appears to be in no acute distress. She is alert, oriented, cooperative, and pleasant to interact with. SKIN: Her incisions are clean, dry, and intact. There is no bruising or bleeding. ASSESSMENT AND PLAN: The patient is a 25-year-old female with suspected ectopic and hemorrhage. I believe the was at the fimbrial end of the tube and self-aborted during its development. This subsequent bleeding and pain brought her into the hospital. That has all been removed now. We will follow again her HCG this morning to see what the next step in management will be. Dr. Reyes is the oncoming physician who will be making those decisions. Job ID: [id number]
--- NOTE | 2020-08-30 08:33 | OP ---
DATE OF PROCEDURE: 08/30/2020 PREOPERATIVE DIAGNOSIS: Suspected ruptured ectopic. POSTOPERATIVE DIAGNOSIS: Suspected ectopic with hemoperitoneum, location unidentified. PRocedure: Diagnostic laparoscopy with evacuation of hemoperitoneum and hemostasis of left tube ANESTHESIA: General. ESTIMATED BLOOD LOSS: 200 mL. COMPLICATIONS: None. COUNTS: Correct. SPECIMEN: Suspected products of conception sent to Pathology. INDICATIONS FOR PROCEDURE: Ms. Tanisha Lewis is a 25-year-old female, presenting to the emergency room with acute onset left lower quadrant pain. On her evaluation down in the emergency room, she was noted to have a left adnexal mass with gestational sac and free fluid and no IUP. DESCRIPTION OF PROCEDURE: The patient was taken to the operating room after evaluation and counseling for diagnostic laparoscopy. She was placed under general anesthesia, placed in dorsal lithotomy position in John stirrups, prepared and draped in normal sterile fashion. Attention was placed vaginally, where cervix was identified with the aid of an operative speculum, and a single-tooth tenaculum and uterine manipulator were then inserted. Attention was placed abdominally. A 5 mm skin incision was made in the base of the umbilicus. A 10 mm incision suprapubically midline and a 5 mm incision on the left lateral side. The abdomen was insufflated with CO2 gas. Entry pressure was about 6 mmHg. A 5 mm port was then inserted successfully through the base of the umbilicus with proper placement confirmed by laparoscope. Immediately visible was a pelvis full of blood, both liquid and clot, which was successfully removed. Once the uterus and tubes were inspected, there was no identifiable ectopic . However, the left tube in the fimbrial end was actively bleeding. It was believed that the at some point aborted about the end of the tube. With some careful pressure, the fimbrial end became hemostatic after several minutes. The inspection of the pelvis did not reveal anything that appeared to be like a gestational sac or products of conception. The blood was irrigated out and the contents of the canister were then filtered, revealing mainly just blood clot. Inspection of the omentum, the intestines, the colon, the posterior cul-de-sac, the ovarian fossae, the ovaries did not identify any concerning features. At this point, the decision was made to end surgery. The suprapubic port was removed and the fascia was closed with the aid of an assist device. The remaining incisions were closed with 4-0 Monocryl after the hemoperitoneum was relieved. Then, the attention was placed vaginally again, where the tenaculum and the uterine manipulator were removed. Silver nitrate was necessary to make the cervix hemostatic. The patient was then taken out of lithotomy position and taken to Recovery in stable condition. Job ID: [id number] [id number]
[2020-08-30] MEDS ORDERED: FLU VACC QS2020-21(6MOS UP)/PF 60 MCG/0.5 ML SYRINGE IM ONE (09:00)
[2020-08-30 09:09] VITALS: BP 96/56
[2020-08-30] MEDS ORDERED: Lidocaine 1% PF 5 ML VIAL ONE (10:10)
[2020-08-30] MEDS ORDERED: Dexamethasone 20 MG/5 ML VIAL ONE (10:10)
[2020-08-30] MEDS ORDERED: Rocuronium Bromide 10 MG/ML (10ML VIAL) ONE (10:10)
[2020-08-30] MEDS ORDERED: PROPOFOL 200 MG/20 ML VIAL ONE (10:10)
[2020-08-30] MEDS ORDERED: Glycopyrrolate 0.2 MG/ML 5 ML SYRINGE ONE (10:10)
[2020-08-30] MEDS ORDERED: PHENYLEPHRINE-NS 100 MCG/ML 10 ML SYRINGE ONE (10:10)
[2020-08-30] MEDS ORDERED: Succinylcholine 200 MG/10 ml SYRINGE FS ONE (10:10)
--- NOTE | 2020-08-30 12:33 | DIS ---
DATE OF ADMISSION: 08/30/2020 DATE OF DISCHARGE: 08/30/2020 DIAGNOSIS: Suspected left ectopic and hemoperitoneum. PROCEDURE: Diagnostic laparoscopy with evacuation of hemoperitoneum. HOSPITAL COURSE: The patient came to the emergency room with left lower quadrant pain, was found to have an ectopic . She was taken to surgery, where the left tube was noted to be bleeding, but there was no obvious ectopic or abnormality with the tube. The hemoperitoneum was evacuated and the patient was closed at that time. She was sent to the floor to get a repeat hCG level. The level dropped from 1987 to 1292 over the course of 10 hours. Given this acute drop, the patient likely self aborted the ectopic. She was meeting milestones for discharge and was discharged home to follow up in within a week for repeat HCG level. She will need to repeat these weekly until the level is negative. [facility] and then weekly. MEDICATIONS: Ibuprofen 800 mg q.8 hours as needed. DIET: Regular. ACTIVITIES: As tolerated. DISCHARGE INSTRUCTIONS: Return for acute worsening of symptoms or call for any questions or concerns. Job ID: [id number]
== END 2020-08-30 10:00 | disposition home or self-care (01) ==
LOC: ERS 21:01 → SDC/OP 08-30 00:09 → 3SW 08-30 02:11 → SDC/OP 08-30 10:00
PROVIDERS: ATTEND Obstetrics & Gynecology
PROC: 0WJJ4ZZ Inspection of Pelvic Cavity, Percutaneous Endoscopic Approach (ICD-10-PCS; principal; 2020-08-30)
DX: K66.1 Hemoperitoneum (principal); N94.89 Other specified conditions associated with female genital organs and menstrual cycle; Z79.899 Other long term (current) drug therapy; Z20.822 Contact with and (suspected) exposure to COVID-19
CPT/HCPCS: 36415; 76856; 81003; 81015; 84702; 85025; 86900; 86901; 88305; J0171; J1100; J1885; J2250; J2405; J2704; J3010; S0020; U0002

== ENCOUNTER 2021-07-24 14:16 | Emergency (ER) | payer SELFPAY ==
[2021-07-24 15:13] LABS: #Lymphocytes 2.4 thou/uL (1.20-3.40); #Monocytes 0.3 thou/uL (0.11-0.59); #Neutrophils 4.8 thou/uL (1.40-6.50); %Basophils 0.1 % (0.0-1.0); %Eosinophils 0.1 % (0.0-10.0); %Lymphocytes 31.9 % (21.0-51.0); %Monocytes 4.5 % (0.0-10.0); %Neutrophils 63.4 % (42.0-75.0); Hemoglobin 13.3 g/dL (12.0-16.0); Mean Corpuscular HGB CONC 33.9 g/dL (32.0-36.0); Mean Corpuscular Hemoglobin 27.7 pg (27.0-31.0); Mean Corpuscular Volume 81.7 fL (78.0-98.0); Mean Platelet Volume 8.1 fL (7.4-10.4); Platelet Count 259 thou/uL (130-400); RBC Distribution Width 12.3 % (11.5-14.5); Red Blood Cell (RBC) Count 4.78 mill/uL (4.20-5.40); White Blood Cell (WBC) Count 7.5 thou/uL (4.8-10.8)
[2021-07-24 15:36] LABS: ALT (SGPT) 17 U/L (8-55); AST (SGOT) 17 U/L (5-34); Albumin 4.2 g/dL (3.5-5.0); Alkaline Phosphatase 103 U/L (40-110); Anion Gap 11 mmol/L (10-20); BUN (Urea Nitrogen) 8 mg/dL (7.0-18.7); Bilirubin, Total 0.8 mg/dL (0.2-1.2); Calc. Creatinine Clearance 0 mL/min (70-130); Calcium 9.1 mg/dL (7.8-10.44); Carbon Dioxide 23 mmol/L (22-29); Chloride 103 mmol/L (98-107); Globulin 3.8 g/dL (2.4-3.5); Glucose 96 mg/dL (70-105); Lipase 10 U/L (8-78); Potassium 3.6 mmol/L (3.5-5.1); Sodium 133 mmol/L (136-145)
[2021-07-24] MEDS ORDERED: Ondansetron PF 4 MG/2 ML Vial ONE (19:14)
[2021-07-24 19:20] LABS: Bilirubin Negative (Negative); Blood, Urine Negative (Negative); Clarity Clear (Clear); Glucose, Urine (Dipstick) Normal (Negative); Ketone, Urine Negative (Negative); Leukocyte Negative Leu/uL (Negative); Nitrite Negative (Negative); Protein, Urine (Dipstick) 20 mg/dL (Neg-Trace); Specific Gravity, Urine 1.031 (1.002-1.036); pH, Urine 6.5 (5.0-9.0)
[2021-07-24 19:21] LABS: Pregu Control Background? CLEAR/WHITE (CLR/WHITE); Pregu Control Bar Appear? YES (CONTROL BAR); Specific Gravity 1.031 (1.002-1.036)
[2021-07-24 19:26] LABS: Pregnancy Test - Urine (BHCG) POSITIVE (Negative)
== END 2021-07-24 22:04 | disposition home or self-care (01) ==
LOC: ERS 14:16
DX: O99.891 Other specified diseases and conditions complicating pregnancy (principal); R10.9 Unspecified abdominal pain; Z3A.08 8 weeks gestation of pregnancy; O99.011 Anemia complicating pregnancy, first trimester
CPT/HCPCS: 36415; 76856; 80053; 81003; 81025; 83690; 84702; 85025; 93976; 96374; J2405

== ENCOUNTER 2023-05-27 10:32 | Emergency (ER) | payer MEDICAID, SELFPAY ==
[2023-05-27] MEDS ORDERED: Ketorolac Tromethamine 30 MG/ML VIAL ONE (11:21)
[2023-05-27] MEDS ORDERED: Dexameth. Sod Phosp. 10 MG/ML (CHEMO USE ONLY) ONE (11:21)
[2023-05-27] MEDS ORDERED: Bicillin LA 1.2 MILLION UNITS/2 ML SYRINGE ONE (12:09)
== END 2023-05-27 12:39 | disposition home or self-care (01) ==
LOC: ERS 10:32
DX: J02.0 Streptococcal pharyngitis (principal)
CPT/HCPCS: 87430; 96372; 99283; J0561; J1100; J1885

== ENCOUNTER 2025-05-01 08:48 | Emergency (ER) | payer BC, SELFPAY ==
[2025-05-01] MEDS ORDERED: Dexamethasone 10 MG/ML VIAL ONE (09:51)
[2025-05-01] MEDS ORDERED: Bicillin LA 1.2 MILLION UNITS/2 ML SYRINGE ONE (09:52)
== END 2025-05-01 09:58 | disposition home or self-care (01) ==
LOC: ERS 08:48
DX: J02.0 Streptococcal pharyngitis (principal)
CPT/HCPCS: 87428; 87430; 96372; 99283; J0561; J1100